=== PATIENT | female | born 2000 | race Hispanic/Latino ===

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

== ENCOUNTER 2023-01-03 13:25 | Emergency (ER) | payer OTHER ==
[2023-01-03] MEDS ORDERED: LORazepam 2 MG/ML SYR.(CARPUJECT) ONE (14:07)
[2023-01-03] MEDS ORDERED: Ondansetron PF 4 MG/2 ML Vial ONE (14:08)
[2023-01-03] MEDS ORDERED: Dexamethasone 10 MG/ML VIAL ONE (14:08)
[2023-01-03] MEDS ORDERED: Meclizine HCl 25 MG TAB ONE (14:08)
== END 2023-01-03 16:00 | disposition home or self-care (01) ==
LOC: ERS 13:25
DX: R42 Dizziness and giddiness (principal)
CPT/HCPCS: 96374; 96375; J1100; J2060; J2405

== ENCOUNTER 2023-06-05 00:51 | Emergency (ER) | payer OTHER ==
[2023-06-05 01:15] LABS: Pregnancy Test - Urine (BHCG) Negative (Negative); Pregu Control Background? CLEAR/WHITE (CLR/WHITE); Pregu Control Bar Appear? YES (CONTROL BAR); Specific Gravity 1.004 (1.002-1.036)
[2023-06-05 01:17] LABS: Clarity Clear (Clear); Leukocyte Negative Leu/uL (Negative); Nitrite Negative (Negative); Protein, Urine (Dipstick) Negative (Neg-Trace); Specific Gravity, Urine 1.004 (1.002-1.036); pH, Urine 6.5 (5.0-9.0)
[2023-06-05 01:18] LABS: Bacteria/HPF None Seen HPF (None Seen); Bilirubin Negative (Negative); Blood, Urine Negative (Negative); CAUTI Indications for Culture Pregnancy; Glucose, Urine (Dipstick) Negative (Negative); Ketone, Urine Negative (Negative); RBC/HPF 0-3 HPF (0-3); Squamous Epithelial None Seen HPF (0-3); Urobilinogen Normal mg/dL (Less than 2); WBC/HPF None Seen HPF (0-3)
[2023-06-05 02:43] LABS: Urine Culture Reflex Yes Yes
[2023-06-05 04:26] LABS: Troponin I Less than 0.010 ng/mL (< 0.028)
[2023-06-05 04:48] LABS: SARS-CoV-2 NAA Rapid Test Not Detected (NotDetected)
[2023-06-05 05:40] LABS: ALT (SGPT) 22 U/L (8-55); AST (SGOT) 18 U/L (5-34); Albumin 4.6 g/dL (3.5-5.0); Alkaline Phosphatase 64 U/L (40-100); Anion Gap 16 mmol/L (10-20); BUN (Urea Nitrogen) 11 mg/dL (7.0-18.7); Calc. Creatinine Clearance 0 mL/min (70-130); Calcium 9.3 mg/dL (7.8-10.44); Carbon Dioxide 19 mmol/L (22-29); Chloride 107 mmol/L (98-107); Estimated GFR 105; Globulin 2.6 g/dL (2.4-3.5); Glucose 92 mg/dL (70-105); Lipase 21 U/L (8-78); Magnesium 1.8 mg/dL (1.7-2.2); Protein, Total 7.2 g/dL (6.0-8.3); Sodium 139 mmol/L (136-145)
[2023-06-05 05:41] LABS: BHCG - Serum Negative (NEGATIVE); Pregs Control Background? CLEAR/WHITE (CLR/WHITE); Pregs Control Bar Appear? YES (CONTROL BAR)
[2023-06-05 05:49] LABS: #Basophils 0.1 thou/uL (0.0-0.2); #Eosinphils 0.1 thou/uL (0.0-0.7); #Monocytes 0.6 thou/uL (0.11-0.59); #Neutrophils 5.9 thou/uL (1.40-6.50); %Basophils 0.8 % (0.0-1.0); %Eosinophils 0.6 % (0.0-10.0); %Lymphocytes 22.5 % (28.0-48.0); %Monocytes 7.2 % (0.0-4.0); %Neutrophils 68.7 % (31.0-61.0); Hematocrit 40.3 % (36.0-47.0); Hemoglobin 13.9 g/dL (12.0-16.0); Mean Corpuscular HGB CONC 34.5 g/dL (32.0-36.0); Mean Corpuscular Hemoglobin 29.7 pg (25.0-35.0); Mean Corpuscular Volume 86.1 fl (78.0-98.0); Mean Platelet Volume 10.1 fL (7.4-10.4); Platelet Count 251 10x3/uL (130-400); Red Blood Cell (RBC) Count 4.68 mill/uL (4.00-5.20); White Blood Cell (WBC) Count 8.6 10x3/uL (4.8-10.8)
== END 2023-06-05 05:05 | disposition home or self-care (01) ==
LOC: ERS 00:51
DX: E87.6 Hypokalemia (principal); R11.10 Vomiting, unspecified
CPT/HCPCS: 36415; 71045; 80053; 81001; 81025; 83690; 83735; 84484; 84703; 85025; 87086; 93005; 96361; 96374; 96375